=== PATIENT | male | born 1975 | race Caucasian/White ===

== ENCOUNTER 2017-12-21 01:56 | Emergency (ER) | payer OTHER ==
[2017-12-21 01:56] VITALS: BMI 30.8
[2017-12-21 02:15] VITALS: TEMP 98.1
--- NOTE | 2017-12-21 02:47 | ED PDOC ---
Arrival/HPI - General Historian: Patient - History of Present Illness Narrative History of Present Illness (Text): 12/21/17 02:55 Patient is a 42 year old female with no past medical history presenting with wax build up of right ear. Patient states he has been having decreased hearing of his right ear secondary to excessive wax build up. He has been experiencing worsening hear loss over many months to a year. He started to use Debrox ear drops this afternoon and became dizzy, so he decided to come into the emergency room. He has no other complaints at this time. Denies fevers, chills, nausea, vomiting, sore throat, runny nose or ear pain. Time/Duration: < month (year) Symptom Onset: Gradual Symptom Course: Worsening Quality: Other (hearing loss, no pain.) <Delfino Aquino - Last Filed: 12/21/17 03:10> <William Denis - Last Filed: 12/21/17 06:46> - General Chief Complaint: ENT Problem Time Seen by Provider: 12/21/17 01:56 Past Medical History - Provider Review Nursing Documentation Reviewed: Yes - Past History Past History: No Previous - Infectious Disease Hx of Infectious Diseases: None - Tetanus Immunization Tetanus Immunization: Unknown - Past Medical History Past Medical History: No Previous - Cardiac Hx Cardiac Disorders: No - Pulmonary Hx Respiratory Disorders: No - Neurological Hx Neurological Disorder: No - HEENT Hx HEENT Disorder: No - Renal Hx Renal Disorder: Yes Hx Kidney Stones: Yes - Endocrine/Metabolic Hx Endocrine Disorders: No - Hematological/Oncological Hx Blood Disorders: No - Integumentary Hx Dermatological Disorder: No - Musculoskeletal/Rheumatological Hx Musculoskeletal Disorders: No - Gastrointestinal Hx Gastrointestinal Disorders: No - Genitourinary/Gynecological Hx Genitourinary Disorders: No - Psychiatric Hx Psychophysiologic Disorder: No Hx Substance Use: No - Past Surgical History Past Surgical History: No Previous - Surgical History Other/Comment: cyst removal to shoulder - Anesthesia Hx Anesthesia: Yes Hx Anesthesia Reactions: No Hx Malignant Hyperthermia: No - Suicidal Assessment Feels Threatened In Home Enviroment: No <Delfino Aquino - Last Filed: 12/21/17 03:10> Family/Social History - Physician Review Nursing Documentation Reviewed: Yes Family/Social History: Unknown Family HX Smoking Status: Never Smoked Hx Alcohol Use: Yes Frequency of alcohol use: Socially Hx Substance Use: No Hx Substance Use Treatment: No <Delfino Aquino - Last Filed: 12/21/17 03:10> Allergies/Home Meds <Delfino Aquino - Last Filed: 12/21/17 03:10> <William Denis - Last Filed: 12/21/17 06:46> Allergies/Adverse Reactions: Allergies No Known Allergies Allergy (Verified 12/21/17 02:14) Review of Systems - Physician Review All systems were reviewed & negative as marked: Yes - Review of Systems Constitutional: Normal. absent: Fatigue, Fevers Eyes: Normal. absent: Vision Changes ENT: Hearing Changes (decreased hearing of right ear for 1 year). absent: Tinnitus, TMJ Pain, Sore Throat, Rhinorrhea, Epistaxis, Sinus Congestion Respiratory: Normal. absent: SOB Neurological: Dizziness (after use of ear drops). absent: Headache <Delfino Aquino - Last Filed: 12/21/17 03:10> Physical Exam Vital Signs Reviewed: Yes Vital Signs Temp Pulse Resp BP Pulse Ox 12/21/17 02:10 98.1 F 92 H 20 108/73 98 Temperature: Afebrile Blood Pressure: Normal Pulse: Regular Respiratory Rate: Normal Appearance: Positive for: Well-Appearing, Non-Toxic, Comfortable Pain Distress: None Mental Status: Positive for: Alert and Oriented X 3 - Systems Exam Head: Present: Atraumatic, Normocephalic Extroacular Muscles: Present: EOMI Conjunctiva: Present: Normal Ears: Present: Other (cerumen impaction of right ear. normal left ear.) Mouth: Present: Moist Mucous Membranes Nose (External): Present: Atraumatic Nose (Internal): Present: Normal Inspection, No Active Bleeding, Moist Neck: Present: Normal Range of Motion Neurological: Present: GCS=15, CN II-XII Intact, Speech Normal, Motor Func Grossly Intact Skin: Present: Warm, Dry, Normal Color. No: Rashes Lymphatic: No: Cervical Adenopathy Psychiatric: Present: Alert, Oriented x 3, Normal Insight, Normal Concentration <Delfino Aquino - Last Filed: 12/21/17 03:10> Vital Signs Temp Pulse Resp BP Pulse Ox 12/21/17 03:00 98.1 F 85 18 124/75 97 12/21/17 02:10 98.1 F 92 H 20 108/73 98 <William Denis - Last Filed: 12/21/17 06:46> Medical Decision Making ED Course and Treatment: 12/21/17 02:48 Patient is a 42 year old male with no past medical history presenting with cerumen impaction of the right ear. Cerumen Impaction of right ear was removed with curette. Patient states he is able to hear again and is not dizzy. Patient with be discharged home with Cortisporin otic solution. * Instructed patient to discontinue use of Debrox while using Cortisporin. Reassessment Condition: Improved <Delfino Aquino - Last Filed: 12/21/17 03:10> ED Course and Treatment: Impression: Pt seen and evaluated with biomedical engineering professor. Aware and agree with HPI, clinical findings, plan, and management. Pt, with no past medical history, presented for right ear wax build up. Plan: -- Cerumen Removal -- Reassess and disposition PROCEDURE: CERUMEN REMOVAL Performed by the biomedical engineering professor, under my supervision. Timeout: A timeout to verify the correct patient, procedure, and site was performed immediately prior to the procedure. Indication: Cerumen impaction Procedure: The cerumen was removed using a curette. Post-procedure: Patient tolerated the procedure well with no immediate complications. The cerumen was removed and TM was visualized. There was no bleeding. <William Denis - Last Filed: 12/21/17 06:46> - PA / SOFTWARE PUBLISHER / Resident Statement / has reviewed & agrees with the documentation as recorded. / has examined the patient and agrees with the treatment plan. <William Denis - Last Filed: 12/21/17 06:46> Disposition/Present on Arrival - Present on Arrival Any Indicators Present on Arrival: No History of DVT/PE: No History of Uncontrolled Diabetes: No Urinary Catheter: No History of Decub. Ulcer: No History Surgical Site Infection Following: None - Disposition Have Diagnosis and Disposition been Completed?: Yes Disposition Time: 02:43 Patient Plan: Discharge <Delfino Aquino - Last Filed: 12/21/17 03:10> <William Denis - Last Filed: 12/21/17 06:46> - Disposition Diagnosis: Cerumen impaction Disposition: HOME/ ROUTINE Condition: GOOD Discharge Instructions (ExitCare): Ear Wax Impaction (DC) Additional Instructions: JENSEN HUTCHINSON, thank you for letting us take care of you today. Your provider was William Denis MD and you were treated for Cerumen Impaction of Right Ear. The emergency medical care you received today was directed at your acute symptoms. If you were prescribed any medication, please fill it and take as directed. It may take several days for your symptoms to resolve. Return to the Emergency Department if your symptoms worsen, do not improve, or if you have any other problems. Please contact your doctor or call one of the physicians/clinics you have been referred to that are listed on the Patient Visit Information form that is included in your discharge packet. Bring any paperwork you were given at discharge with you along with any medications you are taking to your follow up visit. Our treatment cannot replace ongoing medical care by a primary care provider outside of the emergency department. Thank you for allowing the [facility] team to be part of your care today. If you had an X-Ray or CT scan: A Radiologist will review the ED reading if any change in treatment is needed we will contact you. If you had a blood, urine, or wound culture: It will take several days for the results, if any change in treatment is needed we will contact you. If you had an STI test: It will take 48 hours for the results. Please call after 1 week if you have not heard back. Prescriptions: Neomycin/Polymyxin/Hydrocort [Cortisporin Otic Soln] 4 drop AD TID #1 bottle Referrals: Nba Mock, [[facility]] - Follow up with primary Forms: Down (Faroese)
[2017-12-21 03:13] VITALS: BP 124/75; PULSE 85; RESP 18; O2SAT 97
== END 2017-12-21 03:15 | disposition home or self-care (01) ==
LOC: ED 01:56
DX: H61.21 Impacted cerumen, right ear (principal)

== ENCOUNTER 2018-01-20 08:22 | Emergency (ER) | payer OTHER ==
[2018-01-20 08:31] VITALS: BMI 30.4
--- NOTE | 2018-01-20 08:45 | ED PDOC ---
Arrival/HPI - General Chief Complaint: Flu-like Symptoms Time Seen by Provider: 01/20/18 08:24 Historian: Patient - History of Present Illness Time/Duration: Other (Yesterday) Symptom Onset: Gradual Symptom Course: Worsening Severity Level: Mild Associated Symptoms (Text): 01/20/18 08:42 Patient complains of a nonproductive cough congestion URI feeling feverish with chills with a sore throat since yesterday morning. No dyspnea. No chest or back pain. He does not appear ill. He is requesting antibiotics and a note for work. Past Medical History - Past History Past History: No Previous - Infectious Disease Hx of Infectious Diseases: None - Tetanus Immunization Tetanus Immunization: Unknown - Past Medical History Past Medical History: No Previous - Cardiac Hx Cardiac Disorders: No - Pulmonary Hx Respiratory Disorders: No - Neurological Hx Neurological Disorder: No - HEENT Hx HEENT Disorder: No - Renal Hx Renal Disorder: Yes Hx Kidney Stones: Yes - Endocrine/Metabolic Hx Endocrine Disorders: No - Hematological/Oncological Hx Blood Disorders: No - Integumentary Hx Dermatological Disorder: No - Musculoskeletal/Rheumatological Hx Musculoskeletal Disorders: No - Gastrointestinal Hx Gastrointestinal Disorders: No - Genitourinary/Gynecological Hx Genitourinary Disorders: No - Psychiatric Hx Psychophysiologic Disorder: No Hx Substance Use: No - Past Surgical History Past Surgical History: No Previous - Surgical History Other/Comment: cyst removal to shoulder - Anesthesia Hx Anesthesia: Yes Hx Anesthesia Reactions: No Hx Malignant Hyperthermia: No - Suicidal Assessment Feels Threatened In Home Enviroment: No Family/Social History - Physician Review Nursing Documentation Reviewed: Yes Family/Social History: Unknown Family HX Smoking Status: Never Smoked Hx Alcohol Use: Yes Frequency of alcohol use: Socially Hx Substance Use: No Hx Substance Use Treatment: No Allergies/Home Meds Allergies/Adverse Reactions: Allergies No Known Allergies Allergy (Verified 01/20/18 08:35) Review of Systems - Physician Review All systems were reviewed & negative as marked: Yes - Review of Systems Constitutional: absent: Fatigue, Fevers ENT: Sore Throat, Sinus Congestion Respiratory: Cough. absent: SOB, Sputum Cardiovascular: absent: Chest Pain Gastrointestinal: absent: Abdominal Pain, Nausea, Vomiting Neurological: absent: Headache, Dizziness, Focal Weakness Physical Exam Vital Signs Temp Pulse Resp BP Pulse Ox 01/20/18 08:31 98.1 F 98 H 18 112/79 99 Temperature: Afebrile Blood Pressure: Normal Pulse: Regular Respiratory Rate: Normal Appearance: Positive for: Well-Appearing, Non-Toxic, Comfortable Pain Distress: None Mental Status: Positive for: Alert and Oriented X 3 - Systems Exam Head: Present: Atraumatic, Normocephalic Pupils: Present: PERRL Extroacular Muscles: Present: EOMI Conjunctiva: Present: Normal Ears: Present: NORMAL TM, Normal Canal. No: Erythema, TM Bulging Mouth: Present: Moist Mucous Membranes Pharnyx: No: ERYTHEMA, EXUDATE, TONSILS ENLARGED Nose (Internal): Present: Other (congested) Neck: Present: Normal Range of Motion Respiratory/Chest: Present: Clear to Auscultation Cardiovascular: Present: Regular Rate and Rhythm, Normal S1, S2. No: Murmurs Abdomen: No: Tenderness, Distention, Peritoneal Signs Disposition/Present on Arrival - Present on Arrival Any Indicators Present on Arrival: No History of DVT/PE: No History of Uncontrolled Diabetes: No Urinary Catheter: No History of Decub. Ulcer: No History Surgical Site Infection Following: None - Disposition Have Diagnosis and Disposition been Completed?: Yes Diagnosis: Acute upper respiratory infection, Bronchitis Disposition: HOME/ ROUTINE Disposition Time: 08:44 Patient Plan: Discharge Condition: GOOD Discharge Instructions (ExitCare): Acute Bronchitis Additional Instructions: Symptomatic treatment. Tylenol or Advil as directed on bottle as needed. Follow- up with PMD. Follow up in ER as needed. Prescriptions: Benzonatate [Tessalon Perles] 100 mg PO Q8 #30 sgl Azithromycin [Zithromax] 250 mg PO DAILY #6 tab Forms: [facility] (Panamanian), WORK NOTE
[2018-01-20 08:49] VITALS: RESP 18; O2SAT 99
[2018-01-20 09:07] VITALS: BP 114/78; PULSE 90; TEMP 98.2
== END 2018-01-20 08:54 | disposition home or self-care (01) ==
LOC: ED 08:22
DX: J40 Bronchitis, not specified as acute or chronic (principal); J06.9 Acute upper respiratory infection, unspecified

== ENCOUNTER 2018-05-11 08:10 | Emergency (ER) | payer BC, OTHER ==
[2018-05-11 08:20] VITALS: BMI 32.6
[2018-05-11 08:25] VITALS: RESP 18; TEMP 97.3; O2SAT 97
[2018-05-11] MEDS ORDERED: Aspirin 325 mg EC Tablets PO STA (08:46)
--- NOTE | 2018-05-11 09:00 | ED PDOC ---
Arrival/HPI - General Chief Complaint: Back Pain Historian: Patient - History of Present Illness Narrative History of Present Illness (Text): 05/11/18 08:52 Jose Antonio Head is a 43 year old male, who presents to the Emergency department complaining of left upper back pain that radiates to the left side of his chest, associated with cough and sputum. Patient states that this has been ongoing for one year. Patient denies any history of illicit drug use. He however endorses occasional drinking. He denies shortness of breath, nausea, vomiting, dizziness, diaphoresis, chest pain, trauma or any injuries. Time/Duration: Other (one year) Symptom Onset: Gradual Symptom Course: Unchanged Activities at Onset: Light Context: Home Associated Symptoms (Text): 05/11/18 09:34 1 year history of left upper back pain radiating to his left chest. Became worse this morning so he came for evaluation. He also has a nonproductive cough. No dyspnea. No diaphoresis. No dizziness or lightheadedness. No nausea or vomiting. Past Medical History - Provider Review Nursing Documentation Reviewed: Yes - Past History Past History: No Previous - Infectious Disease Hx of Infectious Diseases: None - Tetanus Immunization Tetanus Immunization: Unknown - Past Medical History Past Medical History: No Previous - Cardiac Hx Cardiac Disorders: No - Pulmonary Hx Respiratory Disorders: No - Neurological Hx Neurological Disorder: No - HEENT Hx HEENT Disorder: No - Renal Hx Renal Disorder: Yes Hx Kidney Stones: Yes - Endocrine/Metabolic Hx Endocrine Disorders: No - Hematological/Oncological Hx Blood Disorders: No - Integumentary Hx Dermatological Disorder: No - Musculoskeletal/Rheumatological Hx Musculoskeletal Disorders: No - Gastrointestinal Hx Gastrointestinal Disorders: No - Genitourinary/Gynecological Hx Genitourinary Disorders: No - Psychiatric Hx Psychophysiologic Disorder: No Hx Substance Use: No - Past Surgical History Past Surgical History: No Previous - Surgical History Other/Comment: cyst removal to shoulder - Anesthesia Hx Anesthesia: Yes Hx Anesthesia Reactions: No Hx Malignant Hyperthermia: No - Suicidal Assessment Feels Threatened In Home Enviroment: No Family/Social History - Physician Review Nursing Documentation Reviewed: Yes Family/Social History: Unknown Family HX Smoking Status: Never Smoked Hx Alcohol Use: Yes Frequency of alcohol use: Socially Hx Substance Use: No Hx Substance Use Treatment: No Allergies/Home Meds Allergies/Adverse Reactions: Allergies No Known Allergies Allergy (Verified 05/11/18 08:20) Review of Systems - Physician Review All systems were reviewed & negative as marked: Yes - Review of Systems Constitutional: absent: Fatigue, Fevers ENT: Normal Respiratory: absent: SOB, Cough Cardiovascular: Chest Pain. absent: Palpitations, Syncope Gastrointestinal: absent: Abdominal Pain, Diarrhea, Nausea, Vomiting Genitourinary Male: absent: Dysuria Musculoskeletal: Back Pain Neurological: absent: Headache, Dizziness, Focal Weakness, Gait Changes Endocrine: absent: Diaphoresis Physical Exam Vital Signs Reviewed: Yes Vital Signs Temp Pulse Resp BP Pulse Ox 05/11/18 08:24 97.3 F L 92 H 18 132/83 97 Temperature: Afebrile Blood Pressure: Normal Pulse: Regular Respiratory Rate: Normal Appearance: Positive for: Well-Appearing, Non-Toxic, Comfortable Pain Distress: None Mental Status: Positive for: Alert and Oriented X 3 - Systems Exam Head: Present: Atraumatic, Normocephalic Pupils: Present: PERRL Extroacular Muscles: Present: EOMI Conjunctiva: Present: Normal Mouth: Present: Moist Mucous Membranes Pharnyx: No: ERYTHEMA, EXUDATE, TONSILS ENLARGED Neck: Present: Normal Range of Motion Respiratory/Chest: Present: Clear to Auscultation, Good Air Exchange. No: Respiratory Distress, Accessory Muscle Use, Decreased Breath Sounds, Tender to Palpation Cardiovascular: Present: Regular Rate and Rhythm, Normal S1, S2. No: Murmurs Abdomen: No: Tenderness, Distention, Peritoneal Signs, Rebound, Guarding Back: Present: Normal Inspection. No: CVA Tenderness, Midline Tenderness, Paraspinal Tenderness, Pain with Leg Raise Upper Extremity: Present: Normal Inspection. No: Cyanosis, Edema Lower Extremity: Present: Normal Inspection. No: Edema Neurological: Present: GCS=15, CN II-XII Intact, Speech Normal, Motor Func Grossly Intact, Normal Cerebellar Funct, Gait Normal Skin: Present: Warm, Dry, Normal Color. No: Rashes Psychiatric: Present: Alert, Oriented x 3, Normal Insight, Normal Concentration Medical Decision Making ED Course and Treatment: 05/11/18 09:03 Impression: 43 year old male presents to the Emergency department complaining of left upper back pain, radiating to left chest. Plan: -EKG -Basic labs -Chest X-ray -Aspirin -Toradol -- Reassess and disposition Prior Visits: Notes and results from previous visits were reviewed. Progress Notes: 05/11/18 09:06 05/11/18 09:36 EKG shows normal sinus rhythm rate approximately [address] or T wave changes. 05/11/18 10:55 Symptoms markedly improved post Toradol. - RAD Interpretation Radiology Orders: 05/11/18 08:46 CHEST PORTABLE [RAD] Stat Chest one view was read by the radiologist shows no infiltrate effusion or cardiomegaly. Airplane Tester: Radiologist - Medication Orders Current Medication Orders: Aspirin (Ecotrin) 325 mg PO STAT STA Stop: 05/11/18 08:47 Ketorolac Tromethamine (Toradol) 15 mg IVP ONCE ONE Stop: 05/11/18 08:48 - Scribe Statement The provider has reviewed the documentation as recorded by the Scribhuma Cortes, vel with Elle. All medical record entries made by the Scribe were at my direction and personally dictated by me. I have reviewed the chart and agree that the record accurately reflects my personal performance of the history, physical exam, medical decision making, and the department course for this patient. I have also personally directed, reviewed, and agree with the discharge instructions and disposition. Disposition/Present on Arrival - Present on Arrival Any Indicators Present on Arrival: No History of DVT/PE: No History of Uncontrolled Diabetes: No Urinary Catheter: No History of Decub. Ulcer: No History Surgical Site Infection Following: None - Disposition Have Diagnosis and Disposition been Completed?: Yes Diagnosis: Upper back strain Disposition: HOME/ ROUTINE Disposition Time: 10:57 Patient Plan: Discharge Condition: IMPROVED Discharge Instructions (ExitCare): Muscle Strain (DC) Additional Instructions: Rest and moist heat. Follow-up with PMD. Follow-up in ER as needed. Prescriptions: Naproxen [Naprosyn] 500 mg PO BID #14 tab Referrals: PCP,NO [Primary Care Provider] - Follow up with primary Forms: [facility] (Belarusian), WORK NOTE
[2018-05-11 09:27] LABS: BASO # 0.04 K/mm3 (0.0-2.0); BASO % 0.5 % (0.0-3.0); EOS # 0.3 (0.0-0.7); EOS % 4.2 % (1.5-5.0); HEMOGLOBIN 14.9 g/dL (14.0-18.0); LYMPH # 1.5 (1.2-3.4); MEAN CELL VOLUME 90.9 fl (80.0-105.0); MEAN CORPUSCULAR HEMOGLOBIN 30.8 pg (25.0-35.0); MEAN CORPUSCULAR HGB CONC 33.9 g/dl (31.0-37.0); MEAN PLATELET VOLUME 8.9 fl (7.0-11.0); MONO # 0.5 (0.1-0.6); RBC 4.84 10^6/uL (3.5-6.1); RED CELL DISTRIBUTION WIDTH 13.2 % (11.5-14.5); WHITE BLOOD COUNT 7.4 10^3/uL (4.5-11.0)
--- NOTE | 2018-05-11 09:35 | RAD ---
Date of service: 05/11/2018 HISTORY: cough COMPARISON: 08/02/2015 FINDINGS: LUNGS: No active pulmonary disease. PLEURA: No significant pleural effusion identified, no pneumothorax apparent. CARDIOVASCULAR: No aortic atherosclerotic calcification present. Normal cardiac size. No pulmonary vascular congestion. OSSEOUS STRUCTURES: No significant abnormalities. VISUALIZED UPPER ABDOMEN: Normal. OTHER FINDINGS: None. IMPRESSION: No active disease.
[2018-05-11 09:40] LABS: ALB/GLOB RATIO 1.4 (1.1-1.8); ALBUMIN 4.6 g/dL (3.0-4.8); ALT/SGPT 48 U/L (7-56); AST/SGOT 32 U/L (17-59); BLOOD UREA NITROGEN 16 mg/dL (7-21); CALCIUM 9.9 mg/dL (8.4-10.5); GFR NON-AFRICAN AMERICAN > 60
[2018-05-11 09:50] LABS: TROPONIN I < 0.01 ng/mL
[2018-05-11 11:08] VITALS: BP 122/84; PULSE 84
--- NOTE | 2018-05-11 15:43 | CARD ---
APPROVED REPORT Date of service: 05/11/2018 EKG Measurement Heart [id number] <Conclusion> Normal sinus rhythm Normal ECG
== END 2018-05-11 11:07 | disposition home or self-care (01) ==
LOC: ED 08:10
DX: S29.012A Strain of muscle and tendon of back wall of thorax, initial encounter (principal); X58.XXXA Exposure to other specified factors, initial encounter
CPT/HCPCS: 71045; 80053; 82550; 83615; 83735; 84484; 85025; 85378; 93005; 96374; 99283; J1885